=== PATIENT | female | born 1960 | race Caucasian/White ===

== ENCOUNTER 2016-06-07 17:11 | Emergency (ER) | payer MEDICAID, OTHER ==
[2016-06-07 17:26] VITALS: BP 113/77; PULSE 66; RESP 18; TEMP 98; O2SAT 98
[2016-06-07 17:38] VITALS: BMI 34.5
--- NOTE | 2016-06-07 17:39 | C.PDOC ---
History Of Present Illness 55 y/o F c PMHx HTN, hypothyroidism p/w neck pain x 2 days. Pain is in a focal area on the R sided neck, radiating to the R sided head. Patient states she awoke with it and the pain is getting worse. Pain is constant, worsened with movement of the head to either side especially the R. Denies trauma or fever. Chief Complaint (Nursing): Pain, Chronic Past Medical History Vital Signs: Last Vital Signs Temp 98.0 F 06/07/16 17:25 Pulse 66 06/07/16 17:25 Resp 18 06/07/16 17:25 BP 113/77 06/07/16 17:25 Pulse Ox 98 06/07/16 17:41 - Medical History PMH: HTN, Hypothyroidism Family History: States: No Known Family Hx - Social History Hx Tobacco Use: No Hx Alcohol Use: No Hx Substance Use: No - Immunization History Hx Tetanus Toxoid Vaccination: No Hx Influenza Vaccination: Yes Hx Pneumococcal Vaccination: No Review Of Systems Except As Marked, All Systems Reviewed And Found Negative. Constitutional: Negative for: Fever Cardiovascular: Negative for: Chest Pain Physical Exam - Physical Exam Appears: No Acute Distress Skin: Normal Color Head: Atraumatic, Normacephalic Eye(s): bilateral: PERRL, EOMI Oral Mucosa: Moist Throat: No Erythema, No Exudate Neck: Decreased ROM ( resists rotation to L or R), No Midline Cervical Tenderness, Supple, Other (No mastoid tenderness) Respiratory: No Accessory Muscle Use Gastrointestinal/Abdominal: Soft Extremity: No Swelling Pulses: Left Radial: Normal, Right Radial: Normal Neurological/Psych: Normal Speech, Normal Cognition, Normal Cranial Nerves, Normal Motor Gait: Steady ED Course And Treatment O2 Sat by Pulse Oximetry: 98 Medical Decision Making Medical Decision Making: Patient with cervical muscle spasm, keeping head very straight and forward. Will treat with Toradol IM in ER and continue Flexeril at home, which patient states she already has. Instructed to return to the ER for worsening pain, fever , or any other problem. Disposition - Disposition Disposition: HOME/ ROUTINE Disposition Time: 17:39 Condition: STABLE Prescriptions: Cyclobenzaprine [Cyclobenzaprine HCl] 10 mg PO TID PRN #15 tab PRN Reason: Pain, Moderate (4-7) Instructions: Cervical Strain (DC) Forms: Work Excuse - Clinical Impression Clinical Impression: Cervical strain, acute
== END 2016-06-07 18:07 | disposition home or self-care (01) ==
LOC: C.ER 17:11
DX: S16.1XXA Strain of muscle, fascia and tendon at neck level, initial encounter (principal); X58.XXXA Exposure to other specified factors, initial encounter; Y92.003 Bedroom of unspecified non-institutional (private) residence as the place of occurrence of the external cause
CPT/HCPCS: 96372; 99283; J1885